=== PATIENT | male | born 1985 | race Caucasian/White ===

== ENCOUNTER 2022-08-05 09:12 | Day surgery (SDC) | payer MEDICAID ==
[2022-08-05] VITALS (7 sets, daily range): BP systolic 99–107; BP diastolic 62–103
[~2022-08-05] VITALS: Ht 182.9 cm; Wt 91.7 kg
[2022-08-05] MEDS ORDERED: NAPR-1058 PO (10:25)
[2022-08-05] MEDS ORDERED: GABA300T25 PO (10:25)
[2022-08-05] MEDS ORDERED: CYCL-1 PO (10:25)
[2022-08-05 13:55] LABS: APPEARANCE,CSF CLEAR; CSF SUPERNATANT COLOR COLORLESS; CSF VOLUME 15 ML; TUBE# COUNTED 1
[2022-08-05 13:59] LABS: CSF RBC 0 /CU MM (0); CSF WBC CT 48 /CU MM (0-5); LYMPHOCYTES,CSF 94 % (40-80); MONOCYTES,CSF 6 % (15-45); NEUTRO,CSF 0 % (0-6)
[2022-08-06 10:08] LABS: GLUCOSE,CSF 60 MG/DL (40-75)
[2022-08-06 13:08] LABS: IMMUNOGLOBULIN G, QN, SERUM 1032 mg/dL (603-1613)
[2022-08-07 08:20] LABS: TOTAL PROTEIN,CSF 49 MG/DL (15-45)
[2022-08-09 17:32] LABS: IMMUNOGLOBULIN G, QN CSF 6.8 mg/dL (0.0-10.3); VDRL, CSF Non Reactive (Non Rea:<1:1)
== END 2022-08-05 15:00 | disposition home or self-care (01) ==
LOC: SSTAY O 09:12
PROVIDERS: ATTEND Psychiatry & Neurology Neurology
DX: R20.2 Paresthesia of skin (principal); G62.9 Polyneuropathy, unspecified; G47.33 Obstructive sleep apnea (adult) (pediatric); L40.9 Psoriasis, unspecified; F41.8 Other specified anxiety disorders; M19.90 Unspecified osteoarthritis, unspecified site; G89.29 Other chronic pain; F17.210 Nicotine dependence, cigarettes, uncomplicated; Z79.1 Long term (current) use of non-steroidal anti-inflammatories (NSAID); Z79.899 Other long term (current) drug therapy; Z20.822 Contact with and (suspected) exposure to COVID-19
CPT/HCPCS: 36415; 62328; 72125; 72128; 72131; 82040; 82042; 82164; 82784; 83916; 86592; 87476; 89051